=== PATIENT | female | born 1935 | race Caucasian/White ===

== ENCOUNTER 2016-12-03 11:36 | Emergency (ER) | payer MEDICARE, BC ==
[~2016-12-03 11:36] MED LIST: ASPIRIN325 MG PO; BETAPACE80 MG PO; CALCIUM500 MG PO; DAILY MULTIPLE1 EAC1 PO; LASIX20 M1 PO; MAALOX DPS30 ML PO; NITROSTAT0.4 MG SL; REMERON15 MG PO; SURFAK240 MG PO; SYNTHROID88 MCG PO; TOPROL XL50 MG PO; TYLENOL325 MG PO
--- NOTE | 2016-12-04 08:22 | ER ---
ADMIT: 12/03/2016 RM/LOC: ER [facility] MR#: [id number] [id number] [address] LUCIO [address] [place] [address] Emergency Room Report SEX: F AGE: 81 : 1935 DATE: 12/03/2016 HISTORY OF PRESENT ILLNESS: An 81-year-old female with intermittent chest pain times the past 2 or 3 days. See T-sheet for remainder of history and physical. Cardiac workup was unremarkable. The patient asked to be discharged home. I did speak with Dr. Mitchell, who felt that she would be safe to go home. DIAGNOSIS: Chest pain. Kelby Pritchard MD/ rajesh JOB #: [id number] CC: eKlby Pritchard MD, Attending Physician UNKNOWN, Family Physician
== END 2016-12-03 14:30 | disposition home or self-care (01) ==
LOC: ER 11:36
DX: R07.9 Chest pain, unspecified (principal); I10 Essential (primary) hypertension; Z95.810 Presence of automatic (implantable) cardiac defibrillator; Z79.82 Long term (current) use of aspirin; Z79.899 Other long term (current) drug therapy